=== PATIENT | female | born 1975 | race Caucasian/White ===

== ENCOUNTER 2021-05-20 14:25 | Outpatient (REF) | payer OTHER, SELFPAY ==
[2021-05-20 14:52] LABS: COVID-19 Test Positive (Negative); IDNOW Serial# 9DD0AD1C
== END 2021-05-20 14:26 | disposition home or self-care (01) ==
LOC: HO.LAB 14:25
PROVIDERS: PCP Internal Medicine; Visit Provider Internal Medicine
DX: Z20.822 Contact with and (suspected) exposure to COVID-19 (principal)
CPT/HCPCS: 36415; 87635

== ENCOUNTER 2021-09-02 13:32 | Emergency (ER) | payer OTHER, SELFPAY ==
--- NOTE | ~2021-09-02 | CT_ITS ---
EXAMINATION: CT ABDOMEN AND PELVIS WITH CONTRAST CLINICAL INFORMATION: Diffuse abdominal pain and diarrhea COMPARISON: None TECHNIQUE: Multidetector volumetric images were obtained from the superior aspect of the liver through the pubic symphysis following administration 85 mL of Omnipaque 350 intravenous contrast. Sagittal and coronal reformatted images were obtained on the technologist's workstation. Oral contrast: No This CT examination was performed using dose optimization techniques as appropriate, variously including the following: *Automated exposure control *Adjustment of mA and/or kV according to patient size (this includes techniques or standardized protocols for targeted exams where dose is matched to indication/reason for exam; i.e. extremities or head) *Use of iterative reconstruction technique DLP: 323 mGy-cm FINDINGS: LUNG BASES: Unremarkable. ABDOMINAL AND PELVIC WALL: Unremarkable. LIVER AND BILIARY TREE: Indeterminate 2.0 cm hypoattenuating liver lesion in the hepatic segment 4B which almost demonstrates a branching appearance on coronal, unclear if this could reflect a focally dilated duct or discrete liver lesion. GALLBLADDER: Unremarkable. PANCREAS: Unremarkable. SPLEEN: Unremarkable. ADRENAL GLANDS: Unremarkable. KIDNEYS AND URETERS: Unremarkable. GASTROINTESTINAL TRACT: Gaseous distention of the large bowel with large volume of stool. VASCULAR: Unremarkable. LYMPH NODES/PERITONEUM: No lymphadenopathy. FREE FLUID: None. BLADDER: Unremarkable. PELVIC VISCERA: Uterus is enlarged with several myomas. OSSEOUS STRUCTURES: Advanced sclerosis involving the pubic symphysis with cortical erosion. CT/CT abdomen pelvis w con IMPRESSION: Advanced sclerosis involving the pubic symphysis with cortical erosion, for which differential considerations would include osteitis pubis however osteomyelitis could have a similar appearance. Gaseous distention of the large bowel with large volume of stool, consider correlation with symptoms of constipation. Indeterminate 2.0 cm hypoattenuating liver lesion in the hepatic segment 4B which almost demonstrates a branching appearance on coronal, unclear if this could reflect a focally dilated duct or discrete liver lesion. Recommend contrast-enhanced MR/MRCP for further evaluation. Enlarged myomatous uterus.
--- NOTE | ~2021-09-02 | MR_ITS ---
EXAMINATION: MR PELVIS WITHOUT AND WITH CONTRAST CLINICAL INFORMATION: Abdominal/groin pain. COMPARISON: CT scan of the abdomen and pelvis from today. TECHNIQUE: MRI of the pelvis is obtained before and after the administration of intravenous contrast (Gadavist 5 mL) using usual sequences and projections. FINDINGS: UTERUS: Enlarged fibroid uterus, retroverted and retroflexed. The largest is subserosal in the anterior body/fundus measuring 7.3 x 5.5 x 6.9 cm (image 12, series 6; image 20, series 7). The endometrium demonstrates normal signal intensity measuring up to 0.7 cm (image 17, series 7). The cervix is unremarkable. The vaginal canal is unremarkable. OVARIES: Unremarkable. URINARY BLADDER/DISTAL URETERS: Unremarkable. BOWEL: Limitations secondary to peristalsis without overt abnormality or change. LYMPH NODES: No lymphadenopathy. VASCULAR: Unremarkable. OSSEOUS: L4-L5 mild degenerative disc disease. No suspicious abnormality. SOFT TISSUES: Unremarkable. MR/MR pelvis wo/w con IMPRESSION: 1. Enlarged fibroid uterus as detailed above. No other significant abnormality.
[2021-09-02 13:35] VITALS: BP 174/110; PULSE 82; RESP 18; TEMP 36; O2SAT 100; BMI 19.9
[2021-09-02 14:25] LABS: MANUAL DIFF FLAG NO
[2021-09-02 14:27] LABS: Basophils Percent Auto 0.5 % (0-2); Eosinophils Absolute Auto 0.1 X10*3/uL (0.0-0.4); Eosinophils Percent Auto 1.8 % (0-4); Hematocrit 38.2 % (37.0-47.0); Hemoglobin 13.1 g/dl (12.0-16.0); Imm Gran Abs Auto 0.01 X10*3/uL (0.00-0.03); Imm Gran Pct Auto 0.3 % (0.0-0.4); Lymphocytes Absolute Auto 1.1 X10*3/uL (1.2-4.9); Lymphocytes Percent Auto 29.3 % (20-40); Mean Corpuscular HGB Conc 34.3 g/dl (31.0-35.0); Mean Corpuscular Hemoglobin 29.8 pg (27.0-33.0); Mean Platelet Volume 9.7 fL (9.4-12.3); Monocytes Absolute Auto 0.4 X10*3/uL (0.1-1.2); Monocytes Percent Auto 9.8 % (2-11); Neutrophils Absolute Auto 2.2 x10*3/uL (2.0-8.3); Neutrophils Percent Auto 58.3 % (45-73); Platelet Count 152 X10*3/uL (160-400); Red Blood Count 4.39 X10*6/uL (4.20-5.50); Red Cell Distribution Width 13.4 % (11.0-16.0); White Blood Count 3.8 X10*3/uL (4.8-10.8)
--- NOTE | 2021-09-02 14:31 | ED_ITS ---
HPI - Abdominal Pain General Chief Complaint: Abdominal Pain Stated Complaint: abd swelling pain , diarrhea 3x Time Seen by Provider: 09/02/21 14:31 Source: patient Mode of arrival: ambulatory Limitations: no limitations History of Present Illness HPI narrative: This is a 46-year-old female no significant medical history presenting to the emergency department complaints of severe abdominal pain, diarrhea and fever x2 days. Patient tells me that she began having severe abdominal cramping, bloating and distention that started suddenly yesterday after dinner where she ate meat balls. Nobody around her is sick. She tells me it was not until today that her abdominal pain got severe. She tells me that the abdominal pain today isn't localized to the lower abdomen, described as a cramping sensation she tells me the pain was as bad as 9/10 however now it is a 2/10. She reports fevers at home since yesterday. And she tells me she has been having completely liquid diarrhea. She denies nausea, vomiting, chest pain, shortness of breath, weakness, headache, dizziness. MD elicited complaint: abdominal pain Pertinent past history: none Onset (ago): day(s) (2) Pain Consistency: constant Location: RLQ and LLQ Severity: severe Pain scale (0-10): 9 Quality: cramping and fullness Radiation: none Migration to: no migration Exacerbating factors: nothing Relieving factors: nothing Associated symptoms: denies other symptoms Related Data Allergies Allergy/AdvReac Type Severity Reaction Status Date / Time No Known Allergies Allergy Verified 09/02/21 13:39 Review of Systems Review of Systems Constitutional : No Weight loss, No Fever, No Chills, No Fatigue, No Malaise ENT/Mouth : No sore throat, No Rhinorrhea Eyes: No Eye Pain, No Swelling, No Redness Cardiovascular : No Chest Pain, No SOB, No Dyspnea on Exertion, No Orthopnea, No Edema, No Palpitations Respiratory : No Cough, No Sputum, No Wheezing Gastrointestinal : No Nausea, No Vomiting, + Diarrhea, No Constipation, + abdominal Pain, No Hematochezia, No Melena Genitourinary : No Dysuria, No Urinary Frequency, No Hematuria, Musculoskeletal : No joint pain, No Myalgias, No Joint Swelling Skin : No Skin Lesions, No rash Neuro : No Weakness, No Numbness, No Dizziness, No Headache Psych : No Anxiety/Panic, No Depression All other systems reviewed and are negative Yes all other systems are reviewed and are negative [facility] Past Medical History Attestation statement: The following information was validated with the patient. Source: old records reviewed and nursing notes reviewed Medical History (Updated 09/02/21 @ 14:35 by ROCIO Lopez) Anemia Social History Social History Advance Directives: Yes Advance Directives on File: Yes Advance Directives Date on File: 09/02/21 Physical Exam ED Vital Signs: Vital Signs - 24 hr 09/02/21 13:35 09/02/21 16:14 09/02/21 18:55 Temperature 96.8 F 98.8 F 98.5 F Pulse Rate 82 70 73 Respiratory Rate 18 18 18 Blood Pressure 174/110 H 118/79 120/77 Pulse Oximetry 100 98 97 BMI result Body Mass Index 19.9 VSS Appearance: Alert.? Oriented X3.? No acute distress.? Head: Normocephalic, atraumatic, no step-offs or deformities Eyes: Pupils equal, round and reactive to light.? ENT: Pharynx normal.? Neck: Normal inspection.? Neck supple.? CVS: Normal heart rate and rhythm.? Pulses normal.? Respiratory: No respiratory distress.? Breath sounds normal.? Abdomen: Soft and + pain w/ palpation to LLQ.? Skin: Skin warm and dry.? Normal skin color.? Normal skin turgor.? Extremities: No lower extremity edema.? No calf ttp. 5/5 strength to bilateral upper and lower extremities Back: No midline tenderness, no C-spine tenderness, full range of motion, no CVA tenderness bilaterally Neuro: Oriented X 3.? No motor deficit.? No sensory deficit. CN 2-12 intact Course Reevaluation(s) Reevaluation #1: Patient reports she was able to use the bathroom and passed gas and she is feeling slightly better. However still having remanent left lower quadrant pain. CT pending. Patient doesnt want pain meds. Time: 18:30 Reevaluation #2: Slight leukopenia noted this could be secondary to a viral infection. Patient's potassium is noted to be 3.1 she was given 40 meq of oral potassium. Urine clean. No other acute electrolyte abnormalities Urine clean. Still pending CTs. Time: 18:55 Reevaluation #3: CT of the abdomen and pelvis shows advanced sclerosis involving the pubic symphysis with cortical erosion differentials including osteitis pubis or osteomyelitis however I do not suspect osteomyelitis at this time no pelvic surg eries no abdominal surgeires. There is also noted gaseous distension large and large stool. In an indeterminate 2.0 cm hypoattenuating liver lesion. Patient does not her exquisite tenderness to the right upper quadrant. Discussed these findings with my attending Time: 19:56 Additional Reevaluation(s): 2023 recommends obtaining an MRI of the pelvis to rule out acute osteomyelitis since this was of concern on CT scan. MRI has been ordered. 2253 MRI with enlarged fibroid uterus. No signs of osteomyelitis. At this time patient will be discharged home with PCP follow-up. MDM - Abdominal Pain MDM Narrative Medical decision making narrative: 3 46 yo f no pmhx presents w/ severe lower abdominal pain, fever and diarrhea X2 days. 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 PE- pain with palpation to left lower quadrant, negative Hodgson's, obturator, ps oas, McBurney's point. Lungs clear. Regular rate and rhythm. Neuro nonfocal. Abdomen soft slightly distended, with normoactive bowel sounds. Based off patient's history and physical examination will rule out diverticulitis however, most likely viral infection/viral gastroenteritis. Plan at this time is basic labs and imaging. Medical Records Attestation: I reviewed the patient's medical records. Lab Data Attestation: I reviewed the patient's lab results. Result diagrams: 09/02/21 14:21 09/02/21 14:21 Labs: Lab Results 09/02/21 09/02/21 09/02/21 Range/Units 14:21 14:21 16:13 WBC 3.8 L (4.8-10.8) X10*3/uL RBC 4.39 (4.20-5.50) X10*6/uL Hgb 13.1 (12.0-16.0) g/dl Hct 38.2 (37.0-47.0) % MCV 87.0 (80.0-98.0) fL MCH 29.8 (27.0-33.0) pg MCHC 34.3 (31.0-35.0) g/dl RDW 13.4 (11.0-16.0) % Plt Count 152 L (160-400) X10*3/uL MPV 9.7 (9.4-12.3) fL Immature Gran % (Auto) 0.3 (0.0-0.4) % Neut % (Auto) 58.3 (45-73) % Lymph % (Auto) 29.3 (20-40) % Cedar % (Auto) 9.8 (2-11) % Eos % (Auto) 1.8 (0-4) % Baso % (Auto) 0.5 (0-2) % Lymph # (Auto) 1.1 L (1.2-4.9) X10*3/uL Cedar # (Auto) 0.4 (0.1-1.2) X10*3/uL Eos # (Auto) 0.1 (0.0-0.4) X10*3/uL Baso # (Auto) 0.0 (0.0-0.2) X10*3/uL Abs Immat Gran (auto) 0.01 (0.00-0.03) X10*3/uL Absolute Neuts (auto) 2.2 (2.0-8.3) x10*3/uL Absolute Nucleated RBC 0.000 (0.0-0.012) X10*3/uL Nucleated RBC % (auto) 0.0 (0.0-0.2) /100WBC Sodium 139 (135-145) mmol/L Potassium 3.1 L (3.3-5.1) mmol/L Chloride 105 (96-108) mmol/L Carbon Dioxide 24 (22-29) mmol/L Anion Gap 13 (12-20) BUN 9 (9-16) mg/dL Creatinine 0.71 (0.5-1.4) mg/dL Estim Creat Clear Calc 75.6 Estimated GFR > 60 Random Glucose 91 (60-115) mg/dL Calcium 8.9 (8.4-10.2) mg/dL Total Bilirubin 0.8 (0.0-1.0) mg/dL AST 32 H (5-31) U/L ALT 26 (0-31) U/L Alkaline Phosphatase 43 (39-117) U/L Total Protein 7.0 (6.5-8.0) g/dL Albumin 4.3 (3.5-5.0) g/dL Lipase 26 (8-78) U/L Urine Color STRAW Urine Appearance CLEAR Urine pH 5.5 (5.0-8.0) Ur Specific [place] <= 1.005 (1.005-1.025) Urine Protein NEG (NEG-TRACE) MG/DL Urine Glucose (UA) NEG (NEG) MG/DL Urine Ketones 5 (NEG) MG/DL Urine Blood TRACE (NEG) Urine Nitrite NEG (NEG) Ur Leukocyte Esterase NEG (NEG) Urine RBC 0-2 (0) /HPF Urine WBC 0 (0-4) /HPF Ur Squamous Epith Cells TRACE /LPF Urine Bacteria TRACE /LPF Urine Test (NEGATIVE) 09/02/21 Range/Units 16:13 WBC (4.8-10.8) X10*3/uL RBC (4.20-5.50) X10*6/uL Hgb (12.0-16.0) g/dl Hct (37.0-47.0) % MCV (80.0-98.0) fL MCH (27.0-33.0) pg MCHC (31.0-35.0) g/dl RDW (11.0-16.0) % Plt Count (160-400) X10*3/uL MPV (9.4-12.3) fL Immature Gran % (Auto) (0.0-0.4) % Neut % (Auto) (45-73) % Lymph % (Auto) (20-40) % Cedar % (Auto) (2-11) % Eos % (Auto) (0-4) % Baso % (Auto) (0-2) % Lymph # (Auto) (1.2-4.9) X10*3/uL Cedar # (Auto) (0.1-1.2) X10*3/uL Eos # (Auto) (0.0-0.4) X10*3/uL Baso # (Auto) (0.0-0.2) X10*3/uL Abs Immat Gran (auto) (0.00-0.03) X10*3/uL Absolute Neuts (auto) (2.0-8.3) x10*3/uL Absolute Nucleated RBC (0.0-0.012) X10*3/uL Nucleated RBC % (auto) (0.0-0.2) /100WBC Sodium (135-145) mmol/L Potassium (3.3-5.1) mmol/L Chloride (96-108) mmol/L Carbon Dioxide (22-29) mmol/L Anion Gap (12-20) BUN (9-16) mg/dL Creatinine (0.5-1.4) mg/dL Estim Creat Clear Calc Estimated GFR Random Glucose (60-115) mg/dL Calcium (8.4-10.2) mg/dL Total Bilirubin (0.0-1.0) mg/dL AST (5-31) U/L ALT (0-31) U/L Alkaline Phosphatase (39-117) U/L Total Protein (6.5-8.0) g/dL Albumin (3.5-5.0) g/dL Lipase (8-78) U/L Urine Color Urine Appearance Urine pH (5.0-8.0) Ur Specific [place] (1.005-1.025) Urine Protein (NEG-TRACE) MG/DL Urine Glucose (UA) (NEG) MG/DL Urine Ketones (NEG) MG/DL Urine Blood (NEG) Urine Nitrite (NEG) Ur Leukocyte Esterase (NEG) Urine RBC (0) /HPF Urine WBC (0-4) /HPF Ur Squamous Epith Cells /LPF Urine Bacteria /LPF Urine Test NEGATIVE (NEGATIVE) Critical Care Time Critical Care Time Critical Care Time: Yes Total Critical Care Time: 35 Attestation: I attest to this time spent taking care of the patient, obtaining history, physical, reviewing labs, imaging, speaking to my attending,. Discharge Plan Discharge Clinical Impression: Abdominal pain, Diarrhea Patient Disposition: Home, Self-Care Instructions: Abdominal Pain (ED) Additional Instructions: Take your medications as prescribed. If you were prescribed antibiotics today, it is important that you take your medication to their entirety, do not skip any doses, do not finish them early. Follow-up with your primary care provider this week. Please follow up with GI. Return to the emergency department with new or worsening symptoms. Such as fevers, chills, chest pain, shortness of breath, nausea, vomiting, dizziness, headache, vision changes, lethargy In case of emergency call 911 CT/CT abdomen pelvis w con IMPRESSION: Advanced sclerosis involving the pubic symphysis with cortical erosion, for which differential considerations would include osteitis pubis however osteomyelitis could have a similar appearance. Gaseous distention of the large bowel with large volume of stool, consider correlation with symptoms of constipation. Indeterminate 2.0 cm hypoattenuating liver lesion in the hepatic segment 4B which almost demonstrates a branching appearance on coronal, unclear if this could reflect a focally dilated duct or discrete liver lesion. Recommend contrast-enhanced MR/MRCP for further evaluation. Enlarged myomatous uterus. MR/MR pelvis wo/w con IMPRESSION: 1. Enlarged fibroid uterus as detailed above. No other significant abnormality. Referrals: Cain Espinoza MD [Physician] - 1 week Teto Freed DO, MD [Primary Care Provider] - 2 days
[2021-09-02 14:50] LABS: Alanine Aminotransferase 26 U/L (0-31); Albumin Level 4.3 g/dL (3.5-5.0); Alkaline Phosphatase 43 U/L (39-117); Anion Gap 13 (12-20); Aspartate Amino Transferase 32 U/L (5-31); Bilirubin Total 0.8 mg/dL (0.0-1.0); Blood Urea Nitrogen 9 mg/dL (9-16); Calcium 8.9 mg/dL (8.4-10.2); Carbon Dioxide 24 mmol/L (22-29); Chloride 105 mmol/L (96-108); Creatinine Clr Calc Pharmacy 75.6; Estimated Glomerular Filt Rate > 60; Glucose Random 91 mg/dL (60-115); Lipase 26 U/L (8-78); Potassium 3.1 mmol/L (3.3-5.1); Sodium 139 mmol/L (135-145)
[2021-09-02] MEDS: Potassium Chloride ER 20 MEQ TAB.ER.PRT 40 MEQ PO (15:26)
[2021-09-02 16:14] VITALS: BP 118/79; PULSE 70; RESP 18; TEMP 37.1; O2SAT 98
[2021-09-02 16:34] LABS: Urine Pregnancy NEGATIVE (NEGATIVE)
[2021-09-02 16:35] LABS: Appearance Urine CLEAR; Color Urine STRAW; Glucose Urine UA NEG (NEG); Leukocyte Esterase Urine NEG (NEG); Nitrite Urine NEG (NEG); PH 5.5 (5.0-8.0); Specific Gravity - Urine <= 1.005 (1.005-1.025); UACC Culture Trigger NO; UPreg QC Valid YES; Urine Blood TRACE (NEG); Urine Ketones 5 MG/DL (NEG); Urine Protein NEG (NEG-TRACE)
[2021-09-02] MEDS: iohexoL 350 MG/ML 100 ML INFUS..BTL IV (16:43)
[2021-09-02 16:49] LABS: Bacteria Urine TRACE /LPF; Squamous Epithelial Cell Urine TRACE /LPF; WBC Urine 0 /HPF (0-4)
[2021-09-02 16:50] LABS: RBC Urine 0-2 /HPF (0)
[2021-09-02 18:55] VITALS: BP 120/77; PULSE 73; RESP 18; TEMP 36.9; O2SAT 97
== END 2021-09-02 23:27 | disposition home or self-care (01) ==
PROVIDERS: Emergency Provider Emergency Medicine; PCP Internal Medicine
DX: R10.31 Right lower quadrant pain (principal); R10.32 Left lower quadrant pain; R19.7 Diarrhea, unspecified; R50.9 Fever, unspecified; Z79.899 Other long term (current) drug therapy
CPT/HCPCS: 36415; 72197; 74177; 80053; 81001; 81025; 83690; 85025; 96374; 96375; 99284; 99291; A9585; Q9967

== ENCOUNTER → 2021-09-19 14:21 | Outpatient (BNVA) | payer OTHER, SELFPAY | PROVIDERS: PCP Internal Medicine; Visit Provider Internal Medicine Gastroenterology | DX: Z13.89 Encounter for screening for other disorder (principal) ==

== ENCOUNTER 2021-10-12 15:50 | Outpatient (REF) | payer OTHER, SELFPAY ==
--- NOTE | ~2021-10-12 | MR_ITS ---
EXAMINATION: MR ABDOMEN WITHOUT AND WITH CONTRAST CLINICAL INFORMATION: Further evaluation of a liver abnormality noted on a CT from 09/02/2021. COMPARISON: CT abdomen dated from 09/02/2021. TECHNIQUE: MR abdomen was performed without and with use of 5 mL intravenous Gadavist gadolinium contrast. Postcontrast images are performed in multiphase dynamic sequences. Imaging was performed in 3 planes. FINDINGS: LUNG BASES: The visualized lung bases are unremarkable. LIVER, GALLBLADDER, AND BILIARY TREE: In the area of the previously described focal liver abnormality in segment IVb, there is loss of signal in the dual-echo opposed-phase images and differential attenuation on postcontrast images, favoring to represent a focal area of fatty infiltration. No suspicious liver lesions. PANCREAS: Unremarkable. SPLEEN: Normal. ADRENAL GLANDS: Normal. KIDNEYS AND URETERS: The kidneys are normal in size, shape, and enhance symmetrically. No hydronephrosis. No perinephric stranding. GASTROINTESTINAL TRACT: No bowel obstruction. No ascites or fluid collection. ABDOMINAL WALL: No significant hernia is appreciated. LYMPH NODES: No lymphadenopathy. VASCULAR: Unremarkable. OSSEOUS STRUCTURES: Marrow signal normal. OTHER: Partially imaged enlarged uterus with multiple fibroids. MR/MR abdomen wo/w con IMPRESSION: The abnormality in question corresponds to a focal area of fatty infiltration in segment IVb. Partially imaged multiple uterine fibroids.
== END 2021-10-12 15:51 | disposition home or self-care (01) ==
LOC: HO.MRI 15:50
PROVIDERS: Visit Provider Internal Medicine Gastroenterology
DX: K76.9 Liver disease, unspecified (principal)
CPT/HCPCS: 74183; A9585

== ENCOUNTER 2021-11-18 06:11 | Outpatient (REF) | payer OTHER, SELFPAY ==
[2021-11-18 06:28] LABS: MANUAL DIFF FLAG NO
[2021-11-18 07:01] LABS: Basophils Absolute Auto 0.1 X10*3/uL (0.0-0.2); Basophils Percent Auto 1.6 % (0-2); Eosinophils Absolute Auto 0.1 X10*3/uL (0.0-0.4); Eosinophils Percent Auto 3.1 % (0-4); Hematocrit 37.4 % (37.0-47.0); Imm Gran Abs Auto 0.01 X10*3/uL (0.00-0.03); Imm Gran Pct Auto 0.3 % (0.0-0.4); Lymphocytes Absolute Auto 1.2 X10*3/uL (1.2-4.9); Mean Corpuscular HGB Conc 32.1 g/dl (31.0-35.0); Mean Corpuscular Hemoglobin 27.5 pg (27.0-33.0); Mean Corpuscular Volume 85.6 fL (80.0-98.0); Mean Platelet Volume 10.3 fL (9.4-12.3); Monocytes Absolute Auto 0.3 X10*3/uL (0.1-1.2); Monocytes Percent Auto 8.1 % (2-11); Neutrophils Absolute Auto 1.6 x10*3/uL (2.0-8.3); Neutrophils Percent Auto 49.9 % (45-73); Platelet Count 172 X10*3/uL (160-400); Red Blood Count 4.37 X10*6/uL (4.20-5.50); Red Cell Distribution Width 12.8 % (11.0-16.0); White Blood Count 3.2 X10*3/uL (4.8-10.8)
[2021-11-18 07:28] LABS: Alanine Aminotransferase 24 U/L (0-31); Albumin Level 4.4 g/dL (3.5-5.0); Alkaline Phosphatase 40 U/L (39-117); Anion Gap 11 (12-20); Aspartate Amino Transferase 26 U/L (5-31); Bilirubin Total 1.2 mg/dL (0.0-1.0); Blood Urea Nitrogen 13 mg/dL (9-16); Calcium 9.2 mg/dL (8.4-10.2); Carbon Dioxide 27 mmol/L (22-29); Chloride 104 mmol/L (96-108); Cholesterol 269 mg/dL; Estimated Glomerular Filt Rate > 60; Glucose Random 85 mg/dL (60-115); HDL Cholesterol 85 mg/dL; LDL Cholesterol Calculated 168 mg/dl; Potassium 3.7 mmol/L (3.3-5.1); Sodium 138 mmol/L (135-145); Total Protein 6.8 g/dL (6.5-8.0); Triglycerides 81 mg/dL
[2021-11-18 07:47] LABS: Thyroid Stimulating Hormone 1.38 uIU/mL (0.32-4.0); Vitamin D 25-OH Total 53.7 ng/mL (>30)
== END 2021-11-18 06:12 | disposition home or self-care (01) ==
LOC: HO.LAB 06:11
PROVIDERS: PCP Internal Medicine; Visit Provider Preventive Medicine Public Health & General Preventive Medicine
DX: E34.9 Endocrine disorder, unspecified (principal); E78.5 Hyperlipidemia, unspecified; R94.5 Abnormal results of liver function studies
CPT/HCPCS: 36415; 80053; 80061; 82306; 84443; 85025

== ENCOUNTER 2022-01-03 05:58 | Outpatient (REF) | payer OTHER, SELFPAY ==
[2022-01-04 17:16] LABS: Epstein Barr Virus Early Ag Ab <9.00 U/mL
[2022-01-10 14:26] LABS: Progesterone 4.5 ng/mL
[2022-01-13 04:52] LABS: Estradiol Free 8.18 pg/mL; Estradiol, Ultrasensitive 622 pg/mL
== END 2022-01-03 05:59 | disposition home or self-care (01) ==
LOC: HO.LAB 05:58
PROVIDERS: PCP Internal Medicine; Visit Provider Preventive Medicine Public Health & General Preventive Medicine
DX: D70.4 Cyclic neutropenia (principal); N92.6 Irregular menstruation, unspecified
CPT/HCPCS: 36415; 82670; 82681; 84144; 86663

== ENCOUNTER 2022-05-16 06:11 | Outpatient (REF) | payer OTHER, SELFPAY ==
[2022-05-16 07:40] LABS: Estimated Average Glucose 94 mg/dL; Hemoglobin A1c % 4.9 %
[2022-05-16 07:58] LABS: Cholesterol 257 mg/dL; HDL Cholesterol 76 mg/dL; LDL Cholesterol Calculated 165 mg/dl; Triglycerides 82 mg/dL
[2022-05-16 08:19] LABS: Thyroid Stimulating Hormone 1.15 uIU/mL (0.32-4.0)
== END 2022-05-16 06:12 | disposition home or self-care (01) ==
LOC: HO.LAB 06:11
PROVIDERS: PCP Internal Medicine; Referring Provider Preventive Medicine Public Health & General Preventive Medicine; Visit Provider Internal Medicine
DX: Z00.00 Encounter for general adult medical examination without abnormal findings (principal)
CPT/HCPCS: 36415; 80061; 83036; 84443

== ENCOUNTER 2023-01-17 10:17 | Outpatient (REF) | payer OTHER, SELFPAY ==
--- NOTE | ~2023-01-17 | US_ITS ---
EXAMINATION: US LOWER EXTREMITY VENOUS (REFLUX EXAM), BILATERAL CLINICAL INDICATION: Chronic venous insufficiency with lower extremity varicose veins and pain COMPARISON: None. TECHNIQUE: Color flow triplex imaging and compression Doppler was performed to evaluate both the deep and the superficial systems bilaterally. To evaluate the superficial system, the examination was performed in the upright position. Color-flow Doppler ultrasound and compression ultrasound were utilized. In addition, maneuvers were utilized to demonstrate reflux. FINDINGS: 1. DEEP VENOUS ULTRASOUND OF THE RIGHT LOWER EXTREMITY: Common Femoral Vein: Compressible, normal respiratory variation and augmented flow. Femoral Vein: Compressible, normal color flow and augmentation. Popliteal Vein: Compressible, normal augmentation. Deep Reflux: There is no evidence of reflux in the deep system in either the common femoral vein or the popliteal vein. There is no evidence of a Hughes's cyst. 2. SUPERFICIAL ULTRASOUND WITH DOPPLER OF RIGHT LOWER EXTREMITY: GREAT SAPHENOUS VEIN: Saphenofemoral Junction: 0.3 cm; Reflux: 0 ms Proximal Thigh: 0.3 cm; Reflux: 0 ms Mid Thigh: 0.2 cm; Reflux: 0 ms Above Knee: 0.2 cm; Reflux: 0 ms At Knee: 0.2 cm; Reflux: 0 ms Below Knee: 0.2 cm; Reflux: 0 ms Mid Calf: 0.1 cm; Reflux: 0 ms Ankle: 0.1 cm; Reflux: 0 ms DUPLICATED MEDIAL GREAT SAPHENOUS VEIN: Diameter: None imaged Reflux: NA DUPLICATED LATERAL GREAT SAPHENOUS VEIN: Diameter: None imaged Reflux: NA SMALL SAPHENOUS VEIN: Proximal: 0.2 cm; Reflux: 0 ms Distal: 0.1 cm; Reflux: 0 ms VEIN OF GIACOMINI: Size: NA Reflux: NA PERFORATORS: Location: None imaged Size: NA Reflux: NA VARICOSITIES: Location: None imaged Size: NA Reflux: NA 3. DEEP VENOUS ULTRASOUND OF THE LEFT LOWER EXTREMITY: Common Femoral Vein: Compressible, normal respiratory variation and augmented flow. Femoral Vein: Compressible, normal color flow and augmentation. Popliteal Vein: Compressible, normal augmentation. Deep Reflux: There is no evidence of reflux in the deep system in either the common femoral vein or the popliteal vein. There is no evidence of a Hughes's cyst. 4. SUPERFICIAL ULTRASOUND WITH DOPPLER OF LEFT LOWER EXTREMITY: GREAT SAPHENOUS VEIN: Saphenofemoral Junction: 0.3 cm; Reflux: 0 ms Proximal Thigh: 0.2 cm; Reflux: 0 ms Mid Thigh: 0.1 cm; Reflux: 0 ms Above Knee: 0.1 cm; Reflux: 0 ms At Knee: 0.1 cm; Reflux: 2660 ms Below Knee: 0.1 cm; Reflux: 0 ms Mid Calf: 0.1 cm; Reflux: 0 ms Ankle: 0.1 cm; Reflux: 0 ms DUPLICATED MEDIAL GREAT SAPHENOUS VEIN: Diameter: None imaged Reflux: NA DUPLICATED LATERAL GREAT SAPHENOUS VEIN: Diameter: None imaged Reflux: NA SMALL SAPHENOUS VEIN: Proximal: 0.3 cm; Reflux: 0 ms Distal: 0.1 cm; Reflux: 0 ms VEIN OF GIACOMINI: Size: NA Reflux: NA PERFORATORS: Location: Mid thigh and proximal calf Size: 0.3 cm Reflux: None VARICOSITIES: Location: None Imaged Size: NA Reflux: NA US/US venous duplex LE BI IMPRESSION: Right: No significant venous insufficiency or reflux. Left: Focal area of segmental reflux great saphenous vein at the level of the knee. The great saphenous vein is normal in caliber at this level. No significant venous insufficiency or reflux of present throughout the left lower extremity
== END 2023-01-17 10:18 | disposition home or self-care (01) ==
LOC: HO.US 10:17
PROVIDERS: PCP Internal Medicine; Visit Provider Surgery Vascular Surgery
DX: I83.813 Varicose veins of bilateral lower extremities with pain (principal)
CPT/HCPCS: 93970

== ENCOUNTER 2023-02-06 15:25 | Outpatient (AMB) | payer OTHER, SELFPAY ==
[2023-02-06 15:26] VITALS: BP 124/86; PULSE 76; O2SAT 99; BMI 21.0
--- NOTE | 2023-02-06 15:26 | A.OFFVIS_ITS ---
Intake Vital Signs 02/06/23 15:26 Height 5 ft 2 in Weight 115 lb BMI 21.0 BP 124/86 Blood Pressure Location Rt brachial Position Sitting Pulse 76 Pulse Source Pulse Oximeter Pulse Oximetry (%) 99 Oxygen Delivery Method Room Air Intake Visit Reasons: Follow Up 01/17 Ultrasound Intake Note: Pt presents to the office today for a follow up ultrasound done on 01/17. Pt states her legs are not painful but she states she has a few varicose veins in both legs. Pt denies any numbness, tingling, or swelling. Allergies No Known Allergies Allergy (Verified 02/06/23 15:27) HPI Follow Up 01/17 Ultrasound HPI Details Very pleasant 47-year-old female patient presents for painful varicose veins. Complaints include pain over varicosities, swelling of lower extremities, cramping, fatigue, and heaviness of the lower extremities. 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 It is noted more so in left leg. Patient denies any previous venous surgery or injections. Patient denies any history of DVT/ PE. Patient denies any history of phlebitis. Trial of compression includes - [id number] They now present for vascular evaluation regarding their varicose veins. [facility] Medical History Anemia Surgical History Hx of tooth extraction Family History Maternal Grandmother Diabetes Colon cancer Paternal Grandmother Diabetes Sister Family history of thyroid problem Sister Family history of thyroid problem Father Colon polyp Social History Advance Directives Date on File: 09/02/21 Review of Systems Const Reports as per HPI ENT Reports no additional complaints Card Denies chest pain, Denies chest pain at rest and Denies chest pain with activity Resp Denies chest congestion and Denies cough GI Reports no additional complaints Musc Details: pain over varicosities, aching of lower extremities, swelling, cramping, heaviness and tiredness, itching Denies abnormal gait Skin/Breast Reports pruritus and Denies wounds Neuro Reports no additional complaints and Denies abnormal gait Psych Denies no additional complaints Physical Exam Vital Signs: Last Vital Signs Pulse 76 02/06/23 15:26 BP 124/86 02/06/23 15:26 Pulse Ox 99 02/06/23 15:26 Oxygen Delivery Method Room Air 02/06/23 15:26 BMI result Body Mass Index 21.0 Const General: cooperative, healthy appearing and comfortable Orientation/consciousness: oriented to person, oriented to place and oriented to time Neck Carotids: no bruits Chest Chest palpation & inspection: normal inspection of the chest and normal palpation of entire chest wall Resp Effort & Inspection: normal respiratory effort and able to speak in complete sentences Cardio Rate: regular rate Heart sounds: S1 normal heart sound present and S2 normal heart sound present Peripheral pulses: Peripheral pulses 2+ throughout GI Inspection: Yes normal to inspection Skin Other: +2 edema, large rope-like varicosities greater than 4 mm left medial thigh and posterior calf CEAP Classification C4 - skin color changes Ep - Etiology Primary As - superficial veins P - reflux General skin exam: dry skin Neuro General: oriented to person, oriented to place and oriented to time Extrem Right lower extremity: full ROM, normal capillary refill and edema Left lower extremity: full ROM, normal capillary refill and edema Psych Mental Status: mental status grossly normal Results Reviewed Results Reviewed: Brief summary of venous insufficiency testing is as follows: right great saphenous vein: negative right small saphenous vein: negative right accessory vein: none present left great saphenous vein: negative left small saphenous vein: negative left accessory vein: none present Please note there is no evidence of any venous aneurysms or significant tortuosity Assessment & Plan Assessment & Plan (1) Varicose veins of left lower extremity with inflammation: Code(s): I83.12 - Varicose veins of left lower extremity with inflammation Plan: This patient has varicose veins with inflammation. They continue to be a source of discomfort for the patient. The patient has tried conservative treatment with compression, leg elevation and exercise program for over 3 months time. They have been compliant with all treatment. This has provided minimal relief for the patient. I do not anticipate this course of treatment will alter the underlying etiology. The patient has been scheduled for lower extremity venous treatment inclusive of --- left leg microphlebectomy. Risks, benefits, and complications of this procedure has been discussed in detail with the patient including but not limited to bleeding, infection, and the development of a DVT. The patient has demonstrated a clear understanding and has consented. We will schedule the patient as soon as possible. Thank you for allowing us to participate in this patient's care. If there are any questions or concerns please do not hesitate to contact us. Coding Level of Care Code New Pt Level 4 (03873) Diagnoses Varicose veins of left lower extremity with inflammation I83.12
== END 2023-02-06 16:11 | disposition home or self-care (01) ==
PROVIDERS: PCP Internal Medicine; Visit Provider Surgery Vascular Surgery
DX: I83.12 Varicose veins of left lower extremity with inflammation (principal)
CPT/HCPCS: 99204

== ENCOUNTER → 2023-02-06 15:25 | Outpatient (BNVA) | payer OTHER, SELFPAY | PROVIDERS: PCP Internal Medicine; Visit Provider Surgery Vascular Surgery ==

== ENCOUNTER 2024-02-07 06:19 | Outpatient (REF) | payer OTHER, SELFPAY ==
[2024-02-07 06:33] LABS: MANUAL DIFF FLAG NO
[2024-02-07 07:20] LABS: Basophils Percent Auto 1.1 % (0-2); Eosinophils Absolute Auto 0.1 X10*3/uL (0.0-0.4); Eosinophils Percent Auto 3.6 % (0-4); Hemoglobin 14.4 g/dl (12.0-16.0); Imm Gran Abs Auto 0.01 X10*3/uL (0.00-0.03); Imm Gran Pct Auto 0.3 % (0.0-0.4); Lymphocytes Absolute Auto 1.3 X10*3/uL (1.2-4.9); Lymphocytes Percent Auto 35.7 % (20-40); Mean Corpuscular HGB Conc 34.3 g/dl (31.0-35.0); Mean Corpuscular Hemoglobin 29.9 pg (27.0-33.0); Mean Corpuscular Volume 87.1 fL (80.0-98.0); Mean Platelet Volume 9.7 fL (9.4-12.3); Monocytes Absolute Auto 0.3 X10*3/uL (0.1-1.2); Neutrophils Absolute Auto 1.9 x10*3/uL (2.0-8.3); Neutrophils Percent Auto 51.3 % (45-73); Platelet Count 170 X10*3/uL (160-400); Red Blood Count 4.82 X10*6/uL (4.20-5.50); Red Cell Distribution Width 13.5 % (11.0-16.0); White Blood Count 3.6 X10*3/uL (4.8-10.8)
[2024-02-07 07:53] LABS: Alanine Aminotransferase 32 U/L (0-31); Albumin Level 4.8 g/dL (3.5-5.0); Alkaline Phosphatase 57 U/L (39-117); Anion Gap 14 (12-20); Aspartate Amino Transferase 28 U/L (5-31); Bilirubin Total 1.3 mg/dL (0.0-1.0); Blood Urea Nitrogen 13 mg/dL (9-16); Calcium 10.2 mg/dL (8.4-10.2); Carbon Dioxide 27 mmol/L (22-29); Chloride 105 mmol/L (96-108); Cholesterol 244 mg/dL (<200); Estimated Glomerular Filt Rate > 60; Glucose Random 91 mg/dL (60-115); HDL Cholesterol 82 mg/dL (>40); LDL Cholesterol Calculated 145 mg/dL (<100); Potassium 3.6 mmol/L (3.3-5.1); Sodium 142 mmol/L (135-145); Total Protein 7.5 g/dL (6.5-8.0); Triglycerides 85 mg/dL (<150)
[2024-02-07 08:03] LABS: Vitamin D 25-OH Total 43.3 ng/mL (>30)
[2024-02-14 13:58] LABS: Apolipoprotein B 119 mg/dL (<90)
[2024-02-21 07:23] LABS: Lipoprotein A <10 nmol/L (<75)
== END 2024-02-07 06:20 | disposition home or self-care (01) ==
LOC: HO.LAB 06:19
PROVIDERS: PCP Internal Medicine; Visit Provider Preventive Medicine Public Health & General Preventive Medicine
DX: R53.83 Other fatigue (principal); E56.9 Vitamin deficiency, unspecified; E78.9 Disorder of lipoprotein metabolism, unspecified
CPT/HCPCS: 36415; 80053; 80061; 82172; 82306; 83695; 85025

== ENCOUNTER 2024-05-22 06:34 | Outpatient (REF) | payer OTHER, SELFPAY ==
--- OUTSIDE RECORDS SUMMARY | 2024-05-22 06:36 | XMS_ITS | Continuity of Care Document ---
Author Organization [facility], [facility] Address [address] [place] [address] Care Team Providers Care Enrobing Machine Corder Name Role Phone SHYANNE LAYTON Primary Care Provider Assessment Encounter Date Assessment Date Assessment LastModified by Organization Details LastModified Time 04/02/2024 04/02/2024 48-year-old female presents for cerumen impaction removal. Cerumen impaction removed bilaterally, which patient tolerated well. Otologic exam demonstrated TMs are intact with well-aerated middle ear spaces. Recommend a few drops of mineral oil twice weekly as needed for ear pruritus. Recommend 6-month follow-up for cerumen removal, sooner with issues. [email or web address] Not available 04/02/2024 11:35:46 Plan of Treatment Reminders Order Date Submit Date Provider Last Modified By Organization Details Last Modified Time Details Appointments Establish ed 60 2024 09:00A M TREVA LUKE PA-C Not available Not available Not available Lab None recorded. Referral None recorded. Procedures None recorded. Surgeries None recorded. Imaging None recorded. Medication Orders None recorded. Patient TargetsNo targets recorded. Patient InstructionsNo instructions recorded. Reason for Referral None Reported. Problems Name Problem SNOMED Code Status Onset Date Resolution Date Notes Provider Name and Address Organization Details Recorded Time Impacted cerumen of bilateral ears 14533653559 51814 Active 2015 Impacted cerumen, bilateral ; Note: Date Diagnosed : 06/29/2015 4:35 PM (H61.23) Note: Date Diagnosed : 06/29/2015 4:35 PM (H61.23) SHANNAN MELO MD [address] [place] [address], [facility] [place], [address] , 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 Procedures Surgical History Date Name Laterality Status Provider Name and Address Organization Details Recorded Time 4 Cerumen removal without microscope bilat completed TREVA LUKE PA-C [address] [place] [address],[address], [address], [facility] 04/02/2024 11:33:00 4 Wax_DP completed SHANNAN MELO MD [address] [place] [address],[address], [address], [facility] 11/26/2023 09:04:18 dental surgical procedure completed Kristen Figueredo [facility] 04/02/2024 10:44:48 Imaging Results None recorded. Procedure Notes None recorded. Medical Equipment None Reported. Allergies No known drug allergies Medications Name Sig Start Date Stop Date Status Note LastModified by Organization Details LastModified Time milk thistle 175 mg tablet active Not Available Not Available Not Available pimecroli mus 1 % topical cream APPLY TWICE DAILY TO AFFECTED AREA OF SKIN active Not Available Not Available No t Available betametha sone, augmented 0.05 % topical gel APPLY 1 APPLICAT ION TOPICALL Y TWICE A DAY active Not Available Not Available No t Available Vitamin C powder active Not Available Not Available Not Available zinc 25 mg tablet 2 tablets as needed by oral route. active Not Available Not Available No t Available vitamin B complex tablet 1 tablet as needed by oral route. active Not Available Not Available No t Available norethind yoko (contrace ptive) 0.35 mg tablet 2018 active Medicati on ID: [id number] D uration Value: 84 Brand Name: norethin drone (contrac eptive) Send Method: E-Prescr ibed Sub s Allowed: subs OK Medic ationGen ericName : norethin drone (contrac eptive) Not Available Not Available Not Available omega 3-dha-epa -fish oil 290 mg-430 mg-1.4 gram capsule active Not Available Not Available Not Available Alkelsicen (28) 1 mg-35 mcg tablet 11/04 completed Medicati on ID: [id number] D uration Value: 84 Reason: () Brand Name: Shy (28) Sen d Method: E-Prescr ibed Sub s Allowed: subs OK Medic ationGen ericName : Joycen (28) Not Available Not Available Not Available Vitals Date Recorded Body height Body mass index (BMI) Body weight Provider Name and Address Organization Details Last Updated DateTime 04/02/2024 157.48 cm 21 kg/m2 17329.12 g Kristen Figueredo [place] - [facility] 04/02/2024 10:43:02 Social History None recorded. Functional Status None recorded. Mental Status None recorded. Family History Nothing Reported. Medical History Condition Response Allergies/Hayfever Y Anemia Y High Cholesterol Y Gynecological HistoryNo gynecological history recorded. Obstetrics History GPAL:G 0 P 0 0 0 0 Past Encounters Encounter ID Performer Location Encounter Start Date Encounter Closed Date Diagnosis/Indication Diagnosis SNOMED-CT Code Diagnosis ICD10 Code [id number] ALEXA NICHOLAS MD [facility] of [address] [address] 04/02/2024 10:33:08 04/02/2024 12:15:36 Impacted cerumen of bilateral ears [id number] 414220 H61.23 Health Concerns Section Related Observation LastModified by Organization Detai ls LastModified Time None Recorded Concern Status LastModified by Organization Details LastModified Time None Recorded Payers Encounter Date Sequence Insurance Name Policy Number Policy Rawls Covered Member ID Rawls Member ID Guarantor Name 04/02/2024 1 [facility] (PP[employer]) [id number] Oliver Cardona [id number] Nyla Cardona Notes Date Note Type Note Provider Name and Address Organization Details Recorded Time 04/02/2024 text/html 48-year-old female presents for evaluation of the ears. She reports her ears feel blocked and itchy, left worse than right. Reports no change in hearing. Denies otalgia, otorrhea, tinnitus, or Qtip use. She has been using Debrox drops for four days. ALEXA GARDNER MD [address] [place] [address], [place], [address], [place] - [facility] 04/02/2024 12:38:57 OBGyn Episode No OBEpisode recorded.
[2024-05-22 06:40] LABS: MANUAL DIFF FLAG NO
[2024-05-22 07:15] LABS: Basophils Absolute Auto 0.1 X10*3/uL (0.0-0.2); Basophils Percent Auto 1.4 % (0-2); Eosinophils Absolute Auto 0.2 X10*3/uL (0.0-0.4); Eosinophils Percent Auto 4.6 % (0-4); Hematocrit 43.2 % (37.0-47.0); Hemoglobin 14.4 g/dl (12.0-16.0); Imm Gran Abs Auto 0.01 X10*3/uL (0.00-0.03); Imm Gran Pct Auto 0.2 % (0.0-0.4); Lymphocytes Absolute Auto 1.8 X10*3/uL (1.2-4.9); Lymphocytes Percent Auto 41.9 % (20-40); Mean Corpuscular HGB Conc 33.3 g/dl (31.0-35.0); Mean Corpuscular Hemoglobin 29.4 pg (27.0-33.0); Mean Corpuscular Volume 88.2 fL (80.0-98.0); Mean Platelet Volume 9.5 fL (9.4-12.3); Monocytes Absolute Auto 0.4 X10*3/uL (0.1-1.2); Monocytes Percent Auto 8.5 % (2-11); Neutrophils Absolute Auto 1.9 x10*3/uL (2.0-8.3); Neutrophils Percent Auto 43.4 % (45-73); Platelet Count 171 X10*3/uL (160-400); Red Cell Distribution Width 13.2 % (11.0-16.0); White Blood Count 4.4 X10*3/uL (4.8-10.8)
[2024-05-22 07:37] LABS: Alanine Aminotransferase 26 U/L (0-31); Albumin Level 4.8 g/dL (3.5-5.0); Anion Gap 13 (12-20); Aspartate Amino Transferase 29 U/L (5-31); Bilirubin Total 0.8 mg/dL (0.0-1.0); Blood Urea Nitrogen 16 mg/dL (9-16); Calcium 9.9 mg/dL (8.4-10.2); Carbon Dioxide 31 mmol/L (22-29); Chloride 103 mmol/L (96-108); Cholesterol 222 mg/dL (<200); Estimated Glomerular Filt Rate > 60; Glucose Random 89 mg/dL (60-115); HDL Cholesterol 81 mg/dL (>40); LDL Cholesterol Calculated 125 mg/dL (<100); Potassium 3.9 mmol/L (3.3-5.1); Sodium 143 mmol/L (135-145); Total Protein 7.5 g/dL (6.5-8.0); Triglycerides 82 mg/dL (<150)
[2024-05-22 07:51] LABS: Alkaline Phosphatase 53 U/L (39-117)
== END 2024-05-22 06:35 | disposition home or self-care (01) ==
LOC: HO.LAB 06:34
PROVIDERS: PCP Internal Medicine; Visit Provider Preventive Medicine Public Health & General Preventive Medicine
DX: E78.5 Hyperlipidemia, unspecified (principal); R78.9 Finding of unspecified substance, not normally found in blood; R94.5 Abnormal results of liver function studies
CPT/HCPCS: 36415; 80053; 80061; 85025

== ENCOUNTER 2024-11-18 06:31 | Outpatient (REF) | payer OTHER, SELFPAY ==
--- OUTSIDE RECORDS SUMMARY | 2024-11-18 06:32 | XMS_ITS | Data Portability ---
Author Organization [place] - [facility], Allergy Address [address] [address] Care Team Providers Care Senior Energy Consultant Name Role Phone SHYANNE LAYTON Primary Care Provider [phone] Assessment Encounter Date Assessment Date Assessment LastModified by Organization Details LastModified Time 11/26/2023 11/26/2023 Ears were meticulously cleaned bilaterally today with fine pics, curettes and/or suction. Patient is encouraged to avoid Q-tips in their ears relative to packing the wax in tighter. They may use the corner of their bath towel to gently clean the nooks and crannies of the external ears as needed. Yearly visits or as needed are recommended. [email or web address] Not available 11/26/2023 09:04:36 04/02/2024 04/02/2024 48-year-old female presents for cerumen [...] Last Modified Time Details Appointments Establish ed 15 2024 09:30A M TREVA LUKE PA-C Not available Not [...] Recorded Time Impacted cerumen of bilateral ears [id number] 36570 Active 2015 Impacted cerumen, bilateral ; Note: Date Diagnosed : 06/29/2015 4:35 PM (H61.23) Note: Date Diagnosed : 06/29/2015 4:35 PM (H61.23) SHANNAN MELO MD [address] [facility],[address], [address] , [place] - [facility] 4 09:04:23 Somatofor m disorder 36307138 Active 2015 Psychogen ic dysphagia , including 'globus hystericu s'; Note: Date Diagnosed : 02/09/2016 1:52 PM (F45.8) Not Available [facility] 4 02:17:10 Problem Notes None recorded. Procedures Surgical History Date Name Laterality Status Provider Name and Address Organization Details Recorded Time 4 Cerumen removal without microscope bilat completed TREVA LUKE PA-C [address] [place] [address],[place] [address], [place], [address], [facility] - [facility] 04/02/2024 11:33:00 4 Wax_DP completed SHANNAN MELO MD [address] [place] [address], [address], [facility] 11/26/2023 09:04:18 dental surgical procedure completed Kristen Figueredo [facility] 04/02/2024 10:44:48 Imaging Results None recorded. [...] mg tablet 2018 active Medicati on ID: [id number] D uration Value: 84 Brand Name: norethin drone (contrac eptive) Send Method: E-Prescr ibed Sub s Allowed: subs OK Medic ationGen ericName : norethin drone (contrac eptive) Not Available Not Available Not Available omega 3-dha-epa -fish oil 290 mg-430 mg-1.4 gram capsule active Not Available Not Available Not Available Alyacen 35 (28) 1 mg-35 mcg tablet 11/04 completed Medicati on ID: [id number] D uration Value: 84 Reason: () Brand Name: Alyacen /35 (28) Sen d Method: E-Prescr ibed Sub s Allowed: subs OK Medic ationGen ericName : Alyacen 35 (28) Not Available Not Available Not Available Vitals Date Recorded Body height Body mass index (BMI) Body weight Provider Name and Address Organization Details Last Updated DateTime 11/26/2023 157.48 cm 21 kg/m2 33083.12 g Sid Roland [place] - [facility] 11/26/2023 09:01:48 Date Recorded Body height Body mass index (BMI) Body weight Provider Name and Address Organization Details Last Updated DateTime 04/02/2024 157.48 cm 21 kg/m2 03187.12 g Kristen Figueredo [place] - [facility] 04/02/2024 10:43:02 Social History None recorded. Functional Status None recorded. Mental Status None recorded. Family History Nothing Reported. Medical History Condition Response Allergies/Hayfever Y Anemia Y High Cholesterol Y Gynecological HistoryNo gynecological history recorded. Obstetrics History GPAL:G 0 P 0 0 0 0 Past Encounters Encounter ID Performer Location Encounter Start Date Encounter Closed Date Diagnosis/Indication Diagnosis SNOMED-CT Code Diagnosis ICD10 Code Diagnosis Note [id number] SHANNAN MELO MD [facility] of [address] [address] 11/26/2023 08:40:44 11/26/2023 09:15:14 Impacted cerumen of bilateral ears [id number] 887429 H61.23 [id number] TREVA LUKE PA-C [facility] [address] [place] [address] 04/02/2024 10:33:08 04/02/2024 12:15:36 Impacted cerumen of bilateral ears 2587115288 095358 H61.23 Health Concerns Section Related Observation LastModified by Organization Detai ls LastModified Time None Recorded Concern Status LastModified by Organization Details LastModified Time None Recorded Advance Directives Directive None Recorded Payers Insurance Date Sequence Insurance Name Policy Number Policy Rawls Covered Member ID Rawls Member ID Guarantor Name 11/26/2023 1 [facility] [employer] [employer] [id number] Nyla Cardona [id number] Nyla Cardona 09/23/2024 1 [employer] (PPO) [id number] Oliver Cardona [id number] Nyla Cardona Notes Date Note Type Note Provider Name and Address Organization Details Recorded Time 11/26/2023 text/html blocked earsgets cerumen removed annually SHANNAN MELO MD [address] [facility],[address], [address], [facility] 11/26/2023 09:13:09 04/02/2024 text/html 48-year-old female presents for evaluation of the ears. She reports her ears feel blocked and itchy, left worse than right. Reports no change in hearing. Denies otalgia, otorrhea, tinnitus, or Qtip use. She has been using Debrox drops for four days. ALEXA GARDNER MD [address] [place] [address],[address], [address], [facility] 04/02/2024 12:38:57 OBGyn Episode No OBEpisode recorded.
[2024-11-18 06:44] LABS: MANUAL DIFF FLAG NO
[2024-11-18 07:21] LABS: Basophils Absolute Auto 0.1 X10*3/uL (0.0-0.2); Basophils Percent Auto 1.9 % (0-2); Eosinophils Absolute Auto 0.1 X10*3/uL (0.0-0.4); Eosinophils Percent Auto 3.8 % (0-4); Hematocrit 41.4 % (37.0-47.0); Imm Gran Abs Auto 0.01 X10*3/uL (0.00-0.03); Imm Gran Pct Auto 0.3 % (0.0-0.4); Lymphocytes Absolute Auto 1.7 X10*3/uL (1.2-4.9); Mean Corpuscular HGB Conc 33.8 g/dl (31.0-35.0); Mean Corpuscular Hemoglobin 29.7 pg (27.0-33.0); Mean Corpuscular Volume 87.7 fL (80.0-98.0); Mean Platelet Volume 9.8 fL (9.4-12.3); Monocytes Absolute Auto 0.3 X10*3/uL (0.1-1.2); Neutrophils Absolute Auto 1.5 x10*3/uL (2.0-8.3); Platelet Count 170 X10*3/uL (160-400); Red Blood Count 4.72 X10*6/uL (4.20-5.50); Red Cell Distribution Width 13.2 % (11.0-16.0); White Blood Count 3.7 X10*3/uL (4.8-10.8)
[2024-11-18 07:40] LABS: Rheumatoid Factor < 13.0 IU/mL (<15.0)
[2024-11-18 07:52] LABS: Alanine Aminotransferase 59 U/L (0-31); Albumin Level 4.8 g/dL (3.5-5.0); Alkaline Phosphatase 60 U/L (39-117); Anion Gap 13 (12-20); Aspartate Amino Transferase 38 U/L (5-31); Bilirubin Total 1.3 mg/dL (0.0-1.0); Blood Urea Nitrogen 13 mg/dL (9-16); C Reactive Protein < 0.10 mg/dL (< or = 0.50); Calcium 9.8 mg/dL (8.4-10.2); Carbon Dioxide 27 mmol/L (22-29); Chloride 106 mmol/L (96-108); Cholesterol 246 mg/dL (<200); Estimated Glomerular Filt Rate > 60; Glucose Random 86 mg/dL (60-115); HDL Cholesterol 84 mg/dL (>40); LDL Cholesterol Calculated 141 mg/dL (<100); Potassium 3.6 mmol/L (3.3-5.1); Sodium 142 mmol/L (135-145); Total Protein 7.3 g/dL (6.5-8.0); Triglycerides 105 mg/dL (<150)
[2024-11-18 07:59] LABS: Erythrocyte Sedimentation Rate 7 MM/HR (0-20)
[2024-11-18 08:11] LABS: Thyroid Stimulating Hormone 2.42 uIU/mL (0.32-4.0)
[2024-11-21 13:37] LABS: Apolipoprotein B 104 mg/dL (<90)
== END 2024-11-18 06:32 | disposition home or self-care (01) ==
LOC: HO.LAB 06:31
PROVIDERS: PCP Preventive Medicine Public Health & General Preventive Medicine; Visit Provider Preventive Medicine Public Health & General Preventive Medicine
DX: E78.5 Hyperlipidemia, unspecified (principal); R73.9 Hyperglycemia, unspecified; R78.9 Finding of unspecified substance, not normally found in blood; M12.9 Arthropathy, unspecified
CPT/HCPCS: 36415; 80053; 80061; 82172; 84443; 85025; 85652; 86140; 86431

== ENCOUNTER 2025-02-06 06:30 | Outpatient (REF) | payer OTHER, SELFPAY ==
--- OUTSIDE RECORDS SUMMARY | 2025-02-06 06:32 | XMS_ITS | Encounter Summary ---
Author Organization [facility] Address [address] [place] [address] Care Team Providers Care Abrasive Sawyer Name Role Phone Teto Freed DO Primary Care Provider [phone] Encounter Details Date Type Department Care Team (Latest Contact Info) Description 01/19/2025 Lab Requisition [facility] - Main Lab [address] [facility] [place] [phone] Sher Pacheco MD [address] [address] Encounter for gynecological examination (general) (routine) without abnormal findings Social History Tobacco Use Types Packs/Day Years Used Date Smoking Tobacco: Never Assessed Comments Unknown Sex and Gender Information Value Date Recorded Sex Assigned at Female 01/16/2025 10:37 AM EDT Legal Sex Female 4:18 AM EST Gender Identity Female 01/16/2025 10:37 AM EDT Sexual Orientation Not on file documented as of this encounter Plan of Treatment Upcoming Encounters Date Type Department Care Team (Late st Contact Info) Description 03/06/2025 7:30 AM EDT Appointment [facility] Bone Density [address] [place] [address] documented as of this encounter Procedures Procedure Name Priority Date/Time Associated Diagnosis Comments HPV WITH REFLEX GENOTYPE Routine 01/19/2025 12:00 PM EDT Encounter for gynecological examination (general) (routine) without abnormal findings PAP SMEAR Routine 01/19/2025 12:00 PM EDT Encounter for gynecological examination (general) (routine) without abnormal findings documented in this encounter Results * HPV with reflex genotype (01/19/2025 12:00 PM EDT) HPV Negative Negative LAB MICROBIOLOGY METHOD 01/20/2025 2:01 PM EDT [facility] Brushing/Spatula Cervix uteri structure / Unknown 01/19/2025 12:00 PM EDT 01/19/2025 1:17 PM EDT us Sher Pacheco MD LAB MOLECULAR DIAGNOSTICS PANKAJ MELVIN Final Result [facility] [address] [place] [address], * Pap smear (01/19/2025 12:00 PM EDT) Interpretation Negative for intraepithelial lesion or malignancy 01/30/2025 2:31 PM EDT [facility] General Categorization Negative 01/30/2025 2:31 PM EDT [facility] LMP 05/28/2024 01/30/2025 2:31 PM EDT [facility] Specimen Adequacy Satisfactory for evaluation, endocervical/gr sformation zone component present 01/30/2025 2:31 PM EDT [facility] Pap Methodology Liquid Based Pap Test 01/30/2025 2:31 PM EDT [facility] Disclaimer The Pap test is a screening test which carries an inherent false negative rate. These test results should be correlated with the patient's clinical findings and history. This Pap test was processed using an automated screening system. Technical cytopathology services provided by [facility], at [address] [place] [address] (CLIA # [id number]/Juan Pham MD, Plate And Weld Inspector.) 01/30/2025 2:31 PM EDT [facility] Console Pap Interpretation Reported 01/30/2025 2:31 PM EDT [facility] Brushing/Spatula Cervix uteri structure / Unknown 01/19/2025 12:00 PM EDT 01/19/2025 1:17 PM EDT us Sher Pacheco MD LAB CYTOLOGY ORDERABLES Final Result [facility]) [facility] [address] [place] [address], documented in this encounter Visit Diagnoses Diagnosis Encounter for gynecological examination (general) (routine) without abnormal findings documented in this encounter Care Teams Abrasive Sawyer Relationship Specialty Start Date End Date Teto Freed DO [address] [place] [address] PCP - General 04/11/22 documented as of this encounter
--- OUTSIDE RECORDS SUMMARY | 2025-02-06 06:32 | XMS_ITS | Clinical Summary ---
Author Organization [facility] Address [address] [place] [address] Phone Care Team Providers Care Vice President Of Talent Management Name Role Phone Teto Freed DO Primary Care Provider [phone] Encounters Date Type Department Care Team Description 01/19/2025 Lab Requisition [facility] - Main Lab [address] [place] [address] Sher Pacheco MD Encounter for gynecological examination (general) (routine) without abnormal findings from Last 3 Months Social History Tobacco Use Types Packs/Day Years Used Date Smoking Tobacco: Never Assessed Comments Unknown Sex and Gender Information Value Date Recorded Sex Assigned at Female 01/16/2025 10:37 AM EDT Legal Sex Female 4:18 AM EST Gender Identity Female 01/16/2025 10:37 AM EDT Sexual Orientation Not on file Plan of Treatment Upcoming Encounters Date Type Department Care Team (Late st Contact Info) Description 03/06/2025 7:30 AM EDT Appointment [facility] [address] [place] [address] Health Maintenance Due Date Last Done Comments Breast Cancer Screening 1973 DTaP,Tdap,and Td Vaccines (1 - Tdap) 1992 Hepatitis B Vaccines (1 of 3 - 19+ 3-dose series) 1992 Pneumococcal Vaccine: 50+ Ye ars (1 of 1 - PCV) 2023 Zoster Vaccines (1 of 2) 2023 Depression Screening 05/28/2024 Colorectal Cancer Screening: Colonoscopy 01/16/2025 HIV Screening 01/16/2025 Hepatitis C Screening 01/16/2025 Social Influencers of Health Screening 01/16/2025 COVID-19 Vaccine (2023-2 5 season) 2025 Influenza Vaccine (#1) 2025 Cervical Cancer Screening: HPV 01/19/2030 01/19/2025 HIB Vaccines Aged Out No longer eligi ble based on patient's age to complete this topic HPV Vaccines Aged Out No longer eligi ble based on patient's age to complete this topic Hepatitis A Vaccines Aged Out No long er eligible based on patient's age to complete this topic IPV Vaccines Aged Out No longer eligi ble based on patient's age to complete this topic MMR Vaccines Aged Out No longer eligi ble based on patient's age to complete this topic Meningococcal ACWY Vaccine Aged Out N o longer eligible based on patient's age to complete this topic Meningococcal B Vaccine Aged Out No l onger eligible based on patient's age to complete this topic RSV Immunization Patients Un fan 20 months Aged Out No longer eligible b ased on patient's age to complete this topic Varicella Vaccines Aged Out No longer eligible based on patient's age to complete this topic Procedures Procedure Name Priority Date/Time Associated Diagnosis Comments PAP SMEAR Routine 01/19/2025 12:00 PM EDT Encounter for gynecological examination (general) (routine) without abnormal findings HPV WITH REFLEX GENOTYPE Routine 01/19/2025 12:00 PM EDT Encounter for gynecological examination (general) (routine) without abnormal findings from Last 3 Months Results * HPV with reflex genotype (01/19/2025 12:00 PM EDT) HPV Negative Negative LAB MICROBIOLOGY METHOD 01/20/2025 2:01 PM EDT [facility] Brushing/Spatula Cervix uteri structure / Unknown 01/19/2025 12:00 PM EDT 01/19/2025 1:17 PM EDT Sher Pacheco MD LAB MOLECULAR DIAGNOSTICS PANKAJ MELVIN [facility] [address] [place] [address], [place] [phone] * Pap smear (01/19/2025 12:00 PM EDT) Interpretation Negative for intraepithelial lesion or malignancy 01/30/2025 2:31 PM EDT [facility] General Categorization Negative 01/30/2025 2:31 PM EDT [facility] LMP 05/28/2024 01/30/2025 2:31 PM EDT [facility] Specimen Adequacy Satisfactory for evaluation, endocervical/gr sformation zone component present 01/30/2025 2:31 PM EDT [facility] Pap Methodology Liquid Based Pap Test 01/30/2025 2:31 PM EDT [facility] Disclaimer The Pap test is a screening test which carries an inherent false negative rate. These test results should be correlated with the patient's clinical findings and history. This Pap test was processed using an automated screening system. Technical cytopathology services provided by [facility], at [address] [place] [id number] (CLIA # [id number]/Juan Pham MD, Clinical Program Manager.) 01/30/2025 2:31 PM EDT [facility] Console Pap Interpretation Reported 01/30/2025 2:31 PM EDT [facility] Brushing/Spatula Cervix uteri structure / Unknown 01/19/2025 12:00 PM EDT 01/19/2025 1:17 PM EDT Sher Pacheco MD LAB CYTOLOGY ORDERABLES Final Result [facility] [address] [place] [address], [place] [phone] from Last 3 Months Insurance [employer] Care Teams Vice President Of Talent Management Relationship Specialty Start Date End Date Teto Freed DO [address] [place] [phone] PCP - General 04/11/22
[2025-02-06 06:47] LABS: MANUAL DIFF FLAG NO
[2025-02-06 07:38] LABS: Hematocrit 40.0 % (37.0-47.0); Hemoglobin 14.0 g/dl (12.0-16.0); Imm Gran Abs Auto 0.01 X10*3/uL (0.00-0.03); Imm Gran Pct Auto 0.3 % (0.0-0.4); Lymphocytes Absolute Auto 1.5 X10*3/uL (1.2-4.9); Mean Corpuscular HGB Conc 35.0 g/dl (31.0-35.0); Mean Corpuscular Hemoglobin 30.0 pg (27.0-33.0); Mean Corpuscular Volume 85.7 fL (80.0-98.0); NRBC Abs Auto 0.000 X10*3/uL (0.0-0.012); NRBC Pct Auto 0.0 /100WBC (0.0-0.2); Platelet Count 170 X10*3/uL (160-400); Red Blood Count 4.67 X10*6/uL (4.20-5.50); White Blood Count 3.9 X10*3/uL (4.8-10.8)
[2025-02-06 08:07] LABS: Alanine Aminotransferase 38 U/L (0-31); Albumin Level 5.0 g/dL (3.5-5.0); Alkaline Phosphatase 55 U/L (39-117); Anion Gap 14 (12-20); Aspartate Amino Transferase 29 U/L (5-31); Blood Urea Nitrogen 14 mg/dL (9-16); Calcium 9.7 mg/dL (8.4-10.2); Carbon Dioxide 28 mmol/L (22-29); Chloride 104 mmol/L (96-108); Estimated Glomerular Filt Rate > 60; Potassium 3.7 mmol/L (3.3-5.1); Sodium 142 mmol/L (135-145); Total Protein 7.5 g/dL (6.5-8.0)
[2025-02-07 07:59] LABS: Immunoglobulin A 105 mg/dL (47-310); Immunoglobulin G 1012 mg/dL (600-1640); Immunoglobulin M 82 mg/dL (50-300)
[2025-02-10 14:14] LABS: Anti Nuclear Antibody Screen NEGATIVE (NEGATIVE)
== END 2025-02-06 06:31 | disposition home or self-care (01) ==
LOC: HO.LAB 06:30
PROVIDERS: PCP Internal Medicine; Visit Provider Preventive Medicine Public Health & General Preventive Medicine
DX: Z01.84 Encounter for antibody response examination (principal); B37.82 Candidal enteritis; M12.9 Arthropathy, unspecified; E78.5 Hyperlipidemia, unspecified; R94.5 Abnormal results of liver function studies
CPT/HCPCS: 36415; 80053; 82784; 85025; 85652; 86038; 86140

== ENCOUNTER 2025-05-27 06:26 | Outpatient (REF) | payer OTHER, SELFPAY ==
--- OUTSIDE RECORDS SUMMARY | 2025-05-27 06:29 | XMS_ITS | Encounter Summary ---
Author Organization [facility] Address [address] [place] [address] Care Team Providers Care Board Finisher Name Role Phone Teto Freed DO Primary Care Provider [phone] Encounter Details Date Type Department Care Team (Late st Contact Info) Description 03/27/2025 Lab Requisition [facility] - Main Lab [address] [facility] [place] [phone] Neelima Hernández NP [address] [facility] [address] [place] [address] Urinary tract infection, site not specified; Hematuria, unspecified Social History Tobacco Use Types Packs/Day Years Used Date Smoking Tobacco: Never Assessed Comments Unknown Sex and Gender Information Value Date Recorded Sex Assigned at Female 01/16/2025 10:37 AM EDT Legal Sex Female 4:18 AM EST Gender Identity Female 01/16/2025 10:37 AM EDT Sexual Orientation Not on file documented as of this encounter Plan of Treatment Not on file documented as of this encounter Procedures Procedure Name Priority Date/Time Associated Diagnosis Comments URINALYSIS WITH REFLEX MICROSCOPIC Routine 03/27/2025 9:30 AM EDT Urinary tract infection, site not specified Hematuria, unspecified URINALYSIS WITH REFLEX MICROSCOPIC Routine 03/27/2025 9:30 AM EDT Urinary tract infection, site not specified Hematuria, unspecified CULTURE URINE Routine 03/27/2025 9:30 AM EDT Urinary tract infection, site not specified Hematuria, unspecified documented in this encounter Results * (ABNORMAL) Urinalysis with reflex microscopic (03/27/2025 9:30 AM EDT) Specific [place] Urine 1.003 1.003 - 1.030 LAB URINALYSIS - AUTOMATED METHOD 03/27/2025 11:36 AM [facility] pH, Urine 6.0 5.0 - 8.0 pH LAB URINALYSIS - AUTOMATED METHOD 03/27/2025 11:36 AM [facility] Leukocytes, Urine Small(A) Negative LAB URINALYSIS - AUTOMATED METHOD 03/27/2025 11:36 AM [facility] Nitrite, Urine Negative Negative LAB URINALYSIS - AUTOMATED METHOD 03/27/2025 11:36 AM [facility] Protein, Urine Negative <=Trace mg/dL LAB URINALYSIS - AUTOMATED METHOD 03/27/2025 11:36 AM [facility] Glucose, Urine Negative Negative mg/dL LAB URINALYSIS - AUTOMATED METHOD 03/27/2025 11:36 AM [facility] Ketones, Urine Negative Negative mg/dL LAB URINALYSIS - AUTOMATED METHOD 03/27/2025 11:36 AM [facility] Urobilinogen, Urine 0.2 0.2 - 1.0 mg/dL LAB URINALYSIS - AUTOMATED METHOD 03/27/2025 11:36 AM [facility] Bilirubin, Urine Negative Negative LAB URINALYSIS - AUTOMATED METHOD 03/27/2025 11:36 AM [facility] Blood, Urine Small(A) Negative LAB URINALYSIS - AUTOMATED METHOD 03/27/2025 11:36 AM [facility] RBC, Urine 1 0 - 4 /HPF 03/27/2025 11:36 AM [facility] WBC, Urine 5(H) 0 - 4 /HPF 03/27/2025 11:36 AM [facility] Squamous Epithelial, Urine 19 0 - 60 /LPF 03/27/2025 11:[address] [facility] Bacteria, Urine Negative Negative /HPF 03/27/2025 11:[address] [facility] Urine Urine specimen obtained by clean catch procedure / Unknown 03/27/2025 9:30 AM EDT 03/27/2025 10:59 AM EDT us Ortez Hernández COPY TECHNICIAN LAB URINE ORDERABLES Final Resul t [facility] [address] [place] [address], [place] [phone] * (ABNORMAL) Culture urine (03/27/2025 9:30 AM EDT) Culture, Urine 10,000-49,000 CFU/mL Escherichia coli(A) ISSAC 03/29/2025 10:[address] [facility] Comment: This is an edited result. Previous organism was Gram negative bacilli on 03/28/2025 at 1020 EDT. Urine Urine specimen obtained by clean catch procedure / Unknown 03/27/2025 9:30 AM EDT 03/27/2025 10:59 AM EDT Narrative Organism Antibiotic Method Susceptibility Escherichia coli Amoxicillin/Clavulanate ISSAC 8 ug/ml: Susceptible Escherichia coli Ampicillin/Sulbactam ISSAC 8 ug/ml: Susceptible Escherichia coli Piperacillin/Tazobactam ISSAC <=4 ug/ml: Susceptible Escherichia coli Cefazolin (Urine) ISSAC <=1 ug/ml: Susceptible Escherichia coli Cefoxitin ISSAC <=4 ug/ml: Susceptible Escherichia coli Ceftazidime ISSAC <=0.5 ug/ml: Susceptible Escherichia coli Ceftriaxone ISSAC <=0.25 ug/ml: Susceptible Escherichia coli Cefepime ISSAC <=0.12 ug/ml: Susceptible Escherichia coli Meropenem ISSAC <=0.25 ug/ml: Susceptible Escherichia coli Amikacin ISSAC 2 ug/ml: Susceptible Escherichia coli Gentamicin ISSAC <=1 ug/ml: Susceptible Escherichia coli Ciprofloxacin ISSAC >=4 ug/ml: Resistant Escherichia coli Levofloxacin ISSAC >=8 ug/ml: Resistant Escherichia coli Nitrofurantoin ISSAC <=16 ug/ml: Susceptible Escherichia coli Trimethoprim/Sulfamethoxazole ISSAC >=320 ug/ml: Resistant us Ortez Hernández COPY TECHNICIAN LAB MICROBIOLOGY - GENERAL ORDER LI Final Result [facility] [address] [place] [address], documented in this encounter Visit Diagnoses Diagnosis Urinary tract infection, site not specified Hematuria, unspecified documented in this encounter Care Teams Board Finisher Relationship Specialty Start Date End Date Teto Freed DO [address] [place] [phone] PCP - General 04/11/22 documented as of this encounter
--- OUTSIDE RECORDS SUMMARY | 2025-05-27 06:29 | XMS_ITS | Data Portability ---
Author Organization [facility], Allergy Address [address] [address] Care Team Providers Care Certified Medical Biller Name Role Phone SHYANNE LAYTON Primary Care [...] with issues. [email or web address] Not available 04/02/2024 11:35:46 02/16/2025 02/16/2025 49yo female presents for cerumen removal. Cerumen impactions removed bilaterally, which patient tolerated well. TMs are normal to inspection. Patient denies hearing concerns. Recommend annual follow-up for cerumen debridement, sooner with issues. [email or web address] Not available 02/16/2025 11:58:50 Plan of Treatment Reminders Order Date Submit Date Provider Last Modified By Organization Details Last Modified Time Details Appointments Establish ed 15 2025 09:45A M TREVA LUKE PA-C Not available Not [...] Recorded Time Impacted cerumen of bilateral ears [id number] Active 2015 Impacted cerumen, bilateral ; Note: Date Diagnosed : 06/29/2015 4:35 PM (H61.23) Note: Date Diagnosed : 06/29/2015 4:35 PM (H61.23) TREVA LUKE PA-C [address] [place] [address],[address] [place], [address] , [place] - [facility] 5 11:58:53 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 Procedures Surgical History Date Name Laterality Status Provider Name and Address Organization Details Recorded Time 5 Cerumen removal without microscope bilat completed TREVA LUKE PA-C [address] [place] [address],[address], [address], [facility] - [facility] 02/16/2025 11:57:54 4 Cerumen removal without microscope bilat completed TREVA LUKE PA-C [address] [place] [address],[address], [address], [place] - [facility] 04/02/2024 11:33:00 4 Wax_DP completed SHANNAN MELO MD [address] [place] [address],[address], [address], [facility] - [facility] 11/26/2023 09:04:18 dental surgical procedure completed Krsiten Figueredo [place] - [facility] 04/02/2024 10:44:48 Imaging Results None recorded. [...] mg tablet 2018 active Medicati on ID: [id number] D uration Value: 84 Brand Name: norethin drone (contrac eptive) Send Method: E-Prescr ibed Sub s Allowed: subs OK Medic ationGen ericName : norethin drone (contrac eptive) Not Available Not Available Not Available omega 3-dha-epa -fish oil 290 mg-430 mg-1.4 gram capsule active Not Available Not Available Not Available Vagifem 10 mcg vaginal tablet INSERT 1 TABLET VAGINALL Y EVERY 3 DAYS active Not Available Not Available No t Available Alyacen 1/35 (28) 1 mg-35 mcg tablet 11/04 completed Medicati on ID: [id number] D uration Value: 84 Reason: () Brand Name: Alyacen 1/35 (28) Sen d Method: E-Prescr ibed Sub s Allowed: subs OK Medic ationGen ericName : Alyacen 1/35 (28) Not Available Not Available Not Available Vitals Date Recorded Body height Body mass index (BMI) Body weight Provider Name and Address Organization Details Last Updated DateTime 11/26/2023 157.48 cm 21 kg/m2 37116.12 g Sid Esquivel [facility] 11/26/2023 09:01:48 Date Recorded Body height Body mass index (BMI) Body weight Provider Name and Address Organization Details Last Updated DateTime 02/16/2025 157.48 cm 21 kg/m2 71716.12 g Anita Maddi [place] - [facility] 02/16/2025 10:35:50 Date Recorded Body height Body mass index (BMI) Body weight Provider Name and Address Organization Details Last Updated DateTime 04/02/2024 157.48 cm 21 kg/m2 34489.12 g Kristen Terell [place] - [facility] 04/02/2024 10:43:02 Social History None recorded. [...] Diagnosis SNOMED-CT Code Diagnosis ICD10 Code Diagnosis IMO Codes Diagnosis Note [id number] SHANNAN MELO MD [facility] [address] [address] 11/26/2023 08:40:44 11/26/2023 09:15:14 Impacted cerumen of bilateral ears [id number] 720390 H61.23 17996 TREVA LUKE PA-C [facility] [address] [address] 04/02/2024 10:33:08 04/02/2024 12:15:36 Impacted cerumen of bilateral ears [id number] 576009 H61.23 [id number] TREVA LUKE PA-C [facility] [address] [address] 02/16/2025 10:21:38 02/16/2025 10:54:24 Impacted cerumen of bilateral ears [id number] 717238 H61.23 Health Concerns Section Related Observation LastModified by Organization Detai ls LastModified Time None Recorded Concern Status LastModified by Organization Details LastModified Time None Recorded Advance Directives Directive None Recorded Payers Insurance Date Sequence Insurance Name Policy Number Policy Rawls Covered Member ID Rawls Member ID Guarantor Name 02/16/2025 1 [facility] INDE[facility]ITY [facility] (PPO) [id number] Oliver Cardona [id number] Nyla Cardona 02/16/2025 1 [facility] IN[facility]MNITY PL[facility] (INDEMNITY) [id number] Nyla Brendan [id number] Nyla Brendan 03/02/2025 1 [employer] (PPO) [id number] Oliver Cardona [id number] Nyla Brendan Notes Date Note Type Note Provider Name and Address Organization Details Recorded Time 11/26/2023 text/html ROS as noted in the [facility] blocked earsgets cerumen removed annually SHANNAN MELO MD [address] [facility],[address], [address], [facility] 11/26/2023 09:13:09 04/02/2024 text/html ROS as noted in the [facility] 48-year-old female presents for evaluation of the ears. She reports her ears feel blocked and itchy, left worse than right. Reports no change in hearing. Denies otalgia, otorrhea, tinnitus, or Qtip use. She has been using Debrox drops for four days. ALEXA GARDNER MD [address] [facility],[address], [address], [facility] 04/02/2024 12:38:57 02/16/2025 text/html ROS as noted in the [facility] 49-year-old female presents for evaluation of the ears. Reports no change in hearing. Denies otalgia, otorrhea, tinnitus, or Qtip use. She has been using Debrox drops for four days. No acute concerns. SHANNAN MELO MD [address] [place] [address],[address], [address], [facility] 02/16/2025 16:28:12 OBGyn Episode No OBEpisode recorded.
--- OUTSIDE RECORDS SUMMARY | 2025-05-27 06:29 | XMS_ITS | Clinical Summary ---
Author Organization [facility] Address [address] [place] [address] Phone Care Team Providers Care Linoleum Mechanic Name Role Phone Teto Freed DO Primary Care Provider [phone] Encounters Date Type Department Care Team Description 03/27/2025 Lab Requisition [facility] - Main Lab [address] [facility] [place] [phone] Neelima Hernández NP Urinary tract infection, site not specified; Hematuria, unspecified 03/06/2025 7:18 AM EDT - 03/06/2025 11:59 PM EDT Hospital Encounter [facility] Bone Density [address] [place] [address] Menopause Discharge Disposition: Home or Self Care from Last 3 Months Social History Tobacco Use Types Packs/Day Years Used Date Smoking Tobacco: Never Assessed Comments Unknown Sex and Gender Information Value Date Recorded Sex Assigned at Female 01/16/2025 10:37 AM EDT Legal Sex Female 4:18 AM EST Gender Identity Female 01/16/2025 10:37 AM EDT Sexual Orientation Not on file Plan of Treatment Health Maintenance Due Date Last Done Comments Breast Cancer Screening 1973 Hepatitis B Vaccines (1 of 3 - 19+ 3-dose series) 1992 Pneumococcal Vaccine: 50+ Years (1 of 1 - PCV) 2023 Zoster Vaccines (1 of 2) 2023 Depression Screening 05/28/2024 HIV Screening 01/16/2025 Hepatitis C Screening 01/16/2025 Social Influencers of Health Screening 01/16/2025 COVID-19 Vaccine (3 - 2024-2 6 season) 2025 04/22/2021, 03/25/2021 Influenza Vaccine (#1) 2025 , 03/20/2018, 03/27/2017 Colorectal Cancer Screening: FIT-DNA (Cologuard) 02/02/2026 02/02/2023, 02/02/2023 DTaP,Tdap,and Td Vaccines (2 - Td or Tdap) 07/27/2027 07/26/2017 Cervical Cancer Screening: HPV 01/19/2030 01/19/2025 Osteoporosis Screening (Bone Density Screening) 03/06/2035 03/06/2025 RSV Immunization Adult Patients (1 - 1-dose 75+ series) 2048 HIB Vaccines Aged Out No longer eligi [...] to complete this topic RSV Immunization Patients Under 20 months Aged Out No longer eligible [...] tract infection, site not specified Hematuria, unspecified BD BONE DENSITY DXA AXIAL SKELETON Routine 03/06/2025 8:17 AM EDT Menopause HPV WITH REFLEX GENOTYPE Routine 01/19/2025 12:00 PM EDT Encounter for gynecological examination (general) (routine) without abnormal findings from Last 3 Months or Most Recently Relevant to Health Maintenance Results * (ABNORMAL) Urinalysis with reflex microscopic (03/27/2025 9:30 AM EDT) Specific [place] Urine 1.003 1.003 - 1.030 LAB URINALYSIS - AUTOMATED METHOD 03/27/2025 11:36 AM [facility] pH, Urine 6.0 5.0 - 8.0 pH LAB URINALYSIS - AUTOMATED METHOD 03/27/2025 11:36 AM [facility] Leukocytes, Urine Small(A) Negative LAB URINALYSIS - AUTOMATED METHOD 03/27/2025 11:36 AM [facility] Nitrite, Urine Negative Negative LAB URINALYSIS - AUTOMATED METHOD 03/27/2025 11:36 AM [facility] Protein, Urine Negative <=Trace mg/dL LAB URINALYSIS - AUTOMATED METHOD 03/27/2025 11:36 AM [facility] Glucose, Urine Negative Negative mg/dL LAB URINALYSIS - AUTOMATED METHOD 03/27/2025 11:36 AM [facility] Ketones, Urine Negative Negative mg/dL LAB URINALYSIS - AUTOMATED METHOD 03/27/2025 11:36 AM [facility] Urobilinogen, Urine 0.2 0.2 - 1.0 mg/dL LAB URINALYSIS - AUTOMATED METHOD 03/27/2025 11:36 AM [facility] Bilirubin, Urine Negative Negative LAB URINALYSIS - AUTOMATED METHOD 03/27/2025 11:36 AM [facility] Blood, Urine Small(A) Negative LAB URINALYSIS - AUTOMATED METHOD 03/27/2025 11:36 AM [facility] RBC, Urine 1 0 - 4 /HPF 03/27/2025 11:36 AM EDT [facility] WBC, Urine 5(H) 0 - 4 /HPF 03/27/2025 11:36 AM EDT [facility] Squamous Epithelial, Urine 19 0 - 60 /LPF 03/27/2025 11:36 AM EDT [facility] Bacteria, Urine Negative Negative /HPF 03/27/2025 11:36 AM EDT [facility] Urine Urine specimen obtained by clean catch procedure / Unknown 03/27/2025 9:30 AM EDT 03/27/2025 10:59 AM EDT us Ortez Hernández [employer]MENT OF [employer]HE[employer]ICS [facility] LAB URINE ORDERABLES Final Resul t [facility] [address] [place] [address], [place] [phone] * (ABNORMAL) Culture urine (03/27/2025 9:30 AM EDT) Culture, Urine 10,000-49,000 CFU/mL Escherichia coli(A) ISSAC 03/29/2025 10:09 AM EST [facility] Comment: This is an edited [...] ISSAC >=320 ug/ml: Resistant us Ortez Hernández [facility] LAB MICROBIOLOGY - GENERAL ORDER LI Final Result [facility] [address] [place] [address], * BD Bone Density DXA Axial Skeleton (03/06/2025 8:17 AM EDT) Anatomical Region Laterality Modality Wrist, Hip, L-spine Bone Densito metry 03/06/2025 8:31 AM EDT Impressions 03/06/2025 8:32 AM EDT 1. Osteopenia. 2. FRAX analysis yields a 10-year probability of major osteoporotic fracture of 5.1% and a 10-year probability of hip fracture of 0.5%. Code 83457 -------- FINAL REPORT -------- Dictated By: Chris Andujar Dictated Date: 03/06/2025 08:31 ET Assigned Physician: Chris Andujar Reviewed and Electronically Signed By: Chris Andujar Signed Date: 03/06/2025 08:32 ET Workstation ID: [id number] Transcribed By: Self Edit Transcribed Date: 03/06/2025 08:31 ET Narrative 03/06/2025 8:32 AM EDT HISTORY: The patient is a 49-year-old postmenopausal female with clinical concern for metabolic bone disease. FINDINGS: Dual energy x-ray absorptiometry of the lumbar spine and femurs is performed. The mean bone mineral density at L1-L4 is 0.958 gm/cm2 which is 81% of that of young normals and 90% of that of age matched controls. This yields a T-score of -1.9 and a Z-score of -0.9 which is diagnostic of osteopenia. The mean bone mineral density of the femurs bilaterally is 0.832 gm/cm2 which is 83% of that of young normals and 92% of that of age matched controls. This yields a T-score of -1.4 and a Z-score of -0.6 which is diagnostic of osteopenia. Procedure Note Chris Andujar MD - 03/06/2025 HISTORY: The patient is a 49-year-old postmenopausal female with clinicalconcern for metabolic bone disease. FINDINGS: Dual energy x-ray absorptiometry of the lumbar spine and femursis performed. The mean bone mineral density at L1-L4 is 0.958 gm/cm2 whichis 81% of that of young normals and 90% of that of age matched controls.This yields a T-score of -1.9 and a Z-score of -0.9 which is diagnostic ofosteopenia. The mean bone mineral density of the femurs bilaterally is 0.832 gm/vk0okptt is 83% of that of young normals and 92% of that of age matchedcontrols. This yields a T-score of -1.4 and a Z-score of -0.6 which isdiagnostic of osteopenia. IMPRESSION: 1. Osteopenia. 2. FRAX analysis yields a 10-year probability of major osteoporoticfracture of 5.1% and a 10-year probability of hip fracture of 0.5%. Code 88555 -------- FINAL REPORT -------- Dictated By: Chris Andujar Dictated Date: 03/06/2025 08:31 ET Assigned Physician: Chris Andujar Reviewed and Electronically Signed By: hCris Andujar Signed Date: 03/06/2025 08:32 ET Workstation ID: [id number] Transcribed By: Self Edit Transcribed Date: 03/06/2025 08:31 ET Sher Pacheco MD IM DXA PROCEDURES Final Resul t * HPV with reflex genotype (01/19/2025 12:00 PM EDT) HPV Negative Negative LAB MICROBIOLOGY METHOD 01/20/2025 2:01 PM EDT [facility] Brushing/Spatula Cervix uteri structure / Unknown 01/19/2025 12:00 PM EDT 01/19/2025 1:17 PM EDT us Sher Pacheco MD LAB MOLECULAR DIAGNOSTICS PANKAJ MELVIN Final Result [facility] [address] [place] [address], from Last 3 Months or Most Recently Relevant to Health Maintenance [place] [address] [address] [address] Care Teams Linoleum Mechanic Relationship Specialty Start Date End Date Teto Freed DO [address] [place] [phone] PCP - General 04/11/22
--- OUTSIDE RECORDS SUMMARY | 2025-05-27 06:29 | XMS_ITS | Encounter Summary ---
Author Organization Address [address] [place] [address] Care Team Providers Care Entertainment Dancer Name Role Phone Teto Freed DO Primary Care Provider [phone] Encounter Details Date Type Department Care Team (Latest Contact Info) Description 01/19/2025 Lab Requisition [facility] - Main Lab [address] [place] [phone] Sher Pacheco MD [address] [facility] [address] [place] [phone] Encounter for gynecological examination (general) (routine) without [...] LAB MICROBIOLOGY METHOD 01/20/2025 2:01 PM EDT [facility] Brushing/Spatula Cervix uteri structure / Unknown 01/19/2025 12:00 PM EDT 01/19/2025 1:17 PM EDT Sher Pacheco MD LAB MOLECULAR DIAGNOSTICS PANKAJ MELVIN Final Result [facility] [address] [place] [address], * Pap smear (01/19/2025 12:00 PM EDT) Interpretation Negative for intraepithelial lesion or malignancy 01/30/2025 2:31 PM EDT [facility] at 1431 EDT General Categorization Negative 01/30/2025 2:31 PM EDT [facility] LMP 05/28/2024 01/30/2025 2:31 PM EDT [facility] Specimen Adequacy Satisfactory for evaluation, endocervical/gr sformation zone component present 01/30/2025 2:31 PM EDT [facility] Pap Methodology Liquid Based Pap Test 01/30/2025 2:31 PM EDT [facility] Disclaimer The Pap test is a screening test which carries an inherent false negative rate. These test results should be correlated with the patient's clinical findings and history. This Pap test was processed using an automated screening system. Technical cytopathology services provided by [facility], at [address], [place] [address] (CLIA # [id number]/Juan Pham MD, Medical Physics Researcher.) 01/30/2025 2:31 PM EDT [facility] Console Pap Interpretation Reported 01/30/2025 2:31 PM EDT [facility] Brushing/Spatula Cervix uteri structure / Unknown 01/19/2025 12:00 PM EDT 01/19/2025 1:17 PM EDT us Sher Pacheco MD LAB CYTOLOGY ORDERABLES Final Result [facility] [address] [place] [address], documented in this encounter Visit Diagnoses Diagnosis Encounter for gynecological examination (general) (routine) without abnormal findings documented in this encounter Care Teams Entertainment Dancer Relationship Specialty Start Date End Date Teto Freed DO [address] [place] [phone] PCP - General 04/11/22 documented as of this encounter
[2025-05-27 06:52] LABS: MANUAL DIFF FLAG NO
[2025-05-27 07:20] LABS: Hematocrit 42.2 % (37.0-47.0); Hemoglobin 14.2 g/dl (12.0-16.0); Imm Gran Abs Auto 0.01 X10*3/uL (0.00-0.03); Imm Gran Pct Auto 0.3 % (0.0-0.4); Lymphocytes Absolute Auto 1.6 X10*3/uL (1.2-4.9); Mean Corpuscular HGB Conc 33.6 g/dl (31.0-35.0); Mean Corpuscular Hemoglobin 29.6 pg (27.0-33.0); Mean Corpuscular Volume 88.1 fL (80.0-98.0); NRBC Abs Auto 0.000 X10*3/uL (0.0-0.012); NRBC Pct Auto 0.0 /100WBC (0.0-0.2); Platelet Count 162 X10*3/uL (160-400); Red Blood Count 4.79 X10*6/uL (4.20-5.50); White Blood Count 3.7 X10*3/uL (4.8-10.8)
[2025-05-27 07:56] LABS: Alanine Aminotransferase 34 U/L (0-31); Albumin Level 5.0 g/dL (3.5-5.0); Alkaline Phosphatase 55 U/L (39-117); Anion Gap 10 (12-20); Aspartate Amino Transferase 29 U/L (5-31); Blood Urea Nitrogen 14 mg/dL (9-16); Calcium 9.6 mg/dL (8.4-10.2); Carbon Dioxide 29 mmol/L (22-29); Chloride 106 mmol/L (96-108); Cholesterol 240 mg/dL (<200); Estimated Glomerular Filt Rate > 60; HDL Cholesterol 77 mg/dL (>40); Potassium 3.7 mmol/L (3.3-5.1); Sodium 141 mmol/L (135-145); Total Protein 7.4 g/dL (6.5-8.0); Triglycerides 92 mg/dL (<150)
[2025-05-27 08:16] LABS: Thyroid Stimulating Hormone 1.48 uIU/mL (0.32-4.0)
== END 2025-05-27 06:27 | disposition home or self-care (01) ==
LOC: HO.LAB 06:26
PROVIDERS: Nurse Practitioner Family; Absent Provider Internal Medicine; PCP Internal Medicine; Visit Provider Preventive Medicine Public Health & General Preventive Medicine
DX: R94.5 Abnormal results of liver function studies (principal); E78.5 Hyperlipidemia, unspecified; R53.83 Other fatigue; N95.9 Unspecified menopausal and perimenopausal disorder; Z13.1 Encounter for screening for diabetes mellitus; Z13.21 Encounter for screening for nutritional disorder
CPT/HCPCS: 36415; 80053; 80061; 82306; 82533; 82627; 83036; 84443; 84480; 85025